=== PATIENT | male | born 1960 | race Caucasian/White ===

== ENCOUNTER 2021-11-24 13:10 | Emergency (ER) | payer BC ==
[2021-11-24 13:32] VITALS: BP 132/90; PULSE 74; TEMP 98.2; BMI 24.7
[2021-11-24 14:34] LABS: HEMATOCRIT 42.7 % (35.4-49); HEMOGLOBIN 15.1 G/dL (11.7-16.9); MCH 32.2 pg (25.7-33.7); MCHC 35.3 g/dl (32.0-35.9); MEAN CELL VOLUME 91.3 fl (80-96); MEAN PLT VOLUME 8.7 fl (7.5-11.1); PLATELET COUNT 309.7 10^3/uL (134-434); RBC 4.68 10^6/uL (4.00-5.60); RDW 14.2 % (11.9-15.9)
[2021-11-24 14:39] LABS: ALBUMIN 4.1 g/dl (3.4-5.0); BILIRUBIN,TOTAL 0.5 mg/dl (0.2-1); CALCIUM 10.1 mg/dl (8.5-10); CREATININE 1.5 mg/dl (0.55-1.3)
[2021-11-24] MEDS ORDERED: SODIUM CHLORIDE 1,000 ML IV STA (14:39)
[2021-11-24 15:14] LABS: PLATELET ESTIMATE ADEQUATE
== END 2021-11-24 15:34 | disposition home or self-care (01) ==
LOC: FER 13:10
DX: R53.1 Weakness (principal); R42 Dizziness and giddiness; R07.9 Chest pain, unspecified
CPT/HCPCS: 36415; 70450-TC; 71046-TC-FY; 80053; 84439; 84443; 84484; 85027; 93005; 99285-25